=== PATIENT | male | born 1950 | race African-American/Black ===

== ENCOUNTER 2020-12-27 19:23 | Observation (INO) ==
[2020-12-27 21:52] LABS: Basophils # 0.1 10*3/uL (0.0-0.2); Basophils % 0.6 % (0.0-0.8); Eosinophils # 0.4 10*3/uL (0.0-0.87); Eosinophils % 3.3 % (0.00-10.9); Hematocrit 46.9 VOL% (42.0-52.0); Hemoglobin 14.9 GM/DL (14.0-18.0); Immature Granulocytes % 0.3 %; Immature Granulocytes Absolute 0.03 #; Lymphocytes # 4.2 10*3/uL (1.4-4.0); Lymphocytes % 38.5 % (21.2-54.2); Mean Corpuscular HGB Conc 31.8 GM/DL (32-36); Monocytes % 7.5 % (1.7-12.7); Neutrophils % 49.8 % (38.7-73.9); Platelet Count 308 T/CUMM (130-400); Red Blood Count 5.39 MC/CUMM (3.8-5.5); Red Cell Distribution Width 12.8 % (9.3-17.3); White Blood Count 10.8 T/CUMM (4-12)
[2020-12-27 22:06] LABS: Alanine Aminotransferase 27 U/L (16-61); Albumin 3.7 G/DL (3.4-5.0); Alkaline Phosphatase 87 U/L (45-117); Aspartate Amino Transferase 19 U/L (0-37); Bilirubin,Total < 0.39 MG/DL (0.2-1.0); Blood Urea Nitrogen 8 MG/DL (7-18); Calcium 9.5 MG/DL (8.5-10.1); Carbon Dioxide 23 MMOL/L (21-32); Estimated Glom Filtration Rate 74 ML/MIN; Glucose 105 MG/DL (74-106); Osmolality,Calculated 278.3 MOS/KG (273-304); Potassium 3.9 MMOL/L (3.5-5.1); Sodium 141 MMOL/L (136-145); Total Protein 7.9 G/DL (6.4-8.2)
[2020-12-27 22:10] LABS: Eosinophils 6 % (0-10); Lymphocytes 34 % (20-55); Segmented Neutrophils 50 % (50-85); Total Cells Counted 100
[2020-12-27 22:11] LABS: Atypical Lymphocytes Few; Burr Cells Few; Elliptocytes Few; Platelet Estimate Adequate
[2020-12-28] MEDS ORDERED: diphenhydrAMINE CAP 25 MG CAPSULE PO PRN (00:22)
[2020-12-28] MEDS ORDERED: hydrALAZINE 20 MG/1 ML VIAL IV PRN (00:22)
[2020-12-28] MEDS ORDERED: NICOTINE 21 MG/24 HR PATCH TRANSDERM PRN (00:22)
[2020-12-28] MEDS ORDERED: MORPHINE 4 MG/1 ML VIAL IV PRN (00:22)
[2020-12-28] MEDS ORDERED: ACETAMINOPHEN 325 MG TABLET PO PRN (00:22)
[2020-12-28] MEDS ORDERED: guaiFENesin/DM ER 600-30 MG TABLET PO PRN (00:22)
[2020-12-28] MEDS ORDERED: GLUCAGON 1 MG VIAL IM PRN (00:22)
[2020-12-28] MEDS ORDERED: ONDANSETRON 4 MG/2 ML VIAL IV PRN (00:22)
[2020-12-28] MEDS ORDERED: DEXTROSE 50% 25 GM/50 ML VIAL IV PRN ×2 (00:22→01:23)
[2020-12-28] MEDS: ALBUTEROL/IPRATROPIUM 3 ML NEB RESP TX SCH ×3 (00:52→13:10)
[2020-12-28] MEDS ORDERED: ALBUTEROL/IPRATROPIUM 3 ML NEB RESP TX PRN (03:31)
[2020-12-28] MEDS ORDERED: methylPREDNISolone SOD SUC 40 MG/1 ML VIAL IV SCH (04:00)
[2020-12-28] MEDS ORDERED: ENOXAPARIN 40 MG/0.4 ML SYRINGE SUBCUT SCH ×2 (06:00→09:00)
[2020-12-28] MEDS ORDERED: ASPIRIN 325 MG TABLET PO SCH (09:00)
[2020-12-28] MEDS ORDERED: BUDESONIDE/FORMOTEROL 160-4.5 INHALER 6 GM INH SCH (09:00)
[2020-12-28 12:06] VITALS: BP 140/68
== END 2020-12-28 14:22 | disposition home or self-care (01) ==
LOC: N.ED 19:23 → N.4E 19:23
PROVIDERS: ADMIT Internal Medicine; ATTEND Internal Medicine

== ENCOUNTER 2022-04-26 23:42 | Observation (INO) ==
[2022-04-27] MEDS ORDERED: amLODIPine 5 MG TABLET PO STA (00:04)
[2022-04-27] MEDS ORDERED: methylPREDNISolone SOD SUC 125 MG/2 ML VIAL IV STA (00:04)
[2022-04-27] MEDS ORDERED: ASPIRIN 325 MG TABLET PO STA (00:04)
[2022-04-27] MEDS ORDERED: MORPHINE 2 MG/1 ML SYRINGE IV STA (00:04)
[2022-04-27] MEDS ORDERED: ALBUTEROL/IPRATROPIUM 3 ML NEB RESP TX STA (00:04)
[2022-04-27] MEDS ORDERED: ONDANSETRON 4 MG/2 ML VIAL IV STA (00:04)
[2022-04-27 00:18] LABS: Basophils # 0.1 10*3/uL (0.0-0.2); Basophils % 0.6 % (0.0-0.8); Eosinophils # 0.6 10*3/uL (0.0-0.87); Eosinophils % 6.6 % (0.00-10.9); Hematocrit 45.1 VOL% (42.0-52.0); Hemoglobin 14.2 GM/DL (14.0-18.0); Immature Granulocytes % 0.3 %; Immature Granulocytes Absolute 0.03 #; Lymphocytes # 3.3 10*3/uL (1.4-4.0); Lymphocytes % 36.3 % (21.2-54.2); Mean Corpuscular HGB Conc 31.5 GM/DL (32-36); Mean Corpuscular Volume 84.3 FL (87-102); Mean Platelet Volume 9.7 FL (9.6-12.0); Monocytes # 0.6 10*3/uL (0.11-0.8); Monocytes % 6.7 % (1.7-12.7); Neutrophils % 49.5 % (38.7-73.9); Platelet Count 194 T/CUMM (130-400); Red Blood Count 5.35 MC/CUMM (3.8-5.5); Red Cell Distribution Width 14.1 % (9.3-17.3); White Blood Count 9.1 T/CUMM (4-12)
[2022-04-27 00:30] LABS: Albumin 3.5 G/DL (3.4-5.0); Bilirubin,Total 0.4 MG/DL (0.20-1.00); Calcium 9.1 MG/DL (8.5-10.1); Osmolality,Calculated 282.1 MOS/KG (273-304); Potassium 4.3 MMOL/L (3.5-5.1); Total Protein 7.2 G/DL (6.4-8.2)
[2022-04-27] MEDS ORDERED: ALBUTEROL NEB SOLN 5 MG/ML 20 ML/BOTTLE CONT NEB SCH (00:30)
[2022-04-27 00:52] LABS: INR 0.9; PT Patient Result 10.3 SECS (10.1-12.1); Partial Thromboplastin Time 25.9 SECS (23.7-32.9)
[2022-04-27] MEDS ORDERED: ACETAMINOPHEN 325 MG TABLET PO PRN (01:51)
[2022-04-27] MEDS ORDERED: GLUCAGON 1 MG VIAL IM PRN (01:51)
[2022-04-27] MEDS ORDERED: MORPHINE 2 MG/1 ML SYRINGE IV PRN (01:51)
[2022-04-27] MEDS ORDERED: DEXTROSE 10% 250 ML BAG IV PRN (01:51)
[2022-04-27] MEDS ORDERED: hydrALAZINE 20 MG/1 ML VIAL IV PRN (01:51)
[2022-04-27] MEDS ORDERED: ONDANSETRON 4 MG/2 ML VIAL IV PRN (01:51)
[2022-04-27] MEDS ORDERED: cefTRIAXone 500 MG VIAL ONE (02:41)
[2022-04-27] MEDS: cefTRIAXone 1,000 MG in SODIUM CHLORIDE 0.9% 100 ML IV SCH (02:48)
[2022-04-27] MEDS: AZITHROMYCIN INJ 500 MG in SODIUM CHLORIDE 0.9% 250 ML IV SCH (03:24)
[2022-04-27] MEDS: ALBUTEROL/IPRATROPIUM 3 ML NEB RESP TX SCH ×3 (07:02→19:50)
[2022-04-27] MEDS: BUDESONIDE/FORMOTEROL 160-4.5 INHALER 6 GM INH SCH ×2 (09:38→21:02)
[2022-04-27] MEDS: FUROSEMIDE 20 MG TABLET PO SCH (09:39)
[2022-04-27] MEDS: THEOPHYLLINE ER (24 HR) 400 MG CAPSULE PO SCH (09:39)
[2022-04-27] MEDS: methylPREDNISolone SOD SUC 125 MG/2 ML VIAL IV SCH ×2 (09:40→17:39)
[2022-04-27] MEDS: PANTOPRAZOLE 40 MG TABLET PO SCH (09:40)
[2022-04-27] MEDS: INSULIN LISPRO 100 UNIT/ML SUBCUT SCH ×4 (09:52→21:01)
[2022-04-27] MEDS: guaiFENesin 200 MG/10 ML UDCUP PO PRN ×2 (13:14→17:39)
[2022-04-27] MEDS: SIMVASTATIN 40 MG TABLET PO SCH (20:59)
[2022-04-27] MEDS: ENOXAPARIN 40 MG/0.4 ML SYRINGE SUBCUT SCH (21:00)
[2022-04-28] MEDS: ALBUTEROL/IPRATROPIUM 3 ML NEB RESP TX SCH ×4 (00:15→19:45)
[2022-04-28] MEDS: methylPREDNISolone SOD SUC 125 MG/2 ML VIAL IV SCH ×3 (01:08→18:17)
[2022-04-28] MEDS: cefTRIAXone 1,000 MG in SODIUM CHLORIDE 0.9% 100 ML IV SCH (02:36)
[2022-04-28] MEDS: AZITHROMYCIN INJ 500 MG in SODIUM CHLORIDE 0.9% 250 ML IV SCH (03:07)
[2022-04-28 05:08] LABS: Hematocrit 39.6 VOL% (42.0-52.0); Hemoglobin 12.9 GM/DL (14.0-18.0); Immature Granulocytes % 0.5 %; Immature Granulocytes Absolute 0.05 #; Lymphocytes # 1.1 10*3/uL (1.4-4.0); Lymphocytes % 11.7 % (21.2-54.2); Mean Corpuscular HGB Conc 32.6 GM/DL (32-36); Mean Corpuscular Volume 82.2 FL (87-102); Mean Platelet Volume 9.6 FL (9.6-12.0); Monocytes # 0.2 10*3/uL (0.11-0.8); Monocytes % 1.9 % (1.7-12.7); Neutrophils % 85.9 % (38.7-73.9); Platelet Count 194 T/CUMM (130-400); Red Blood Count 4.82 MC/CUMM (3.8-5.5); Red Cell Distribution Width 13.9 % (9.3-17.3); White Blood Count 9.2 T/CUMM (4-12)
[2022-04-28 05:25] LABS: Calcium 8.9 MG/DL (8.5-10.1); Osmolality,Calculated 282.4 MOS/KG (273-304)
[2022-04-28] MEDS: INSULIN LISPRO 100 UNIT/ML SUBCUT SCH ×4 (09:56→21:32)
[2022-04-28] MEDS: FUROSEMIDE 20 MG TABLET PO SCH (09:57)
[2022-04-28] MEDS: THEOPHYLLINE ER (24 HR) 400 MG CAPSULE PO SCH (09:57)
[2022-04-28] MEDS: PANTOPRAZOLE 40 MG TABLET PO SCH (09:57)
[2022-04-28] MEDS: BUDESONIDE/FORMOTEROL 160-4.5 INHALER 6 GM INH SCH ×2 (10:00→21:35)
[2022-04-28] MEDS: guaiFENesin 200 MG/10 ML UDCUP PO PRN ×2 (10:00→18:17)
[2022-04-28] MEDS ORDERED: ALBUTEROL 2.5 MG/3 ML NEB RESP TX PRN (10:47)
[2022-04-28] MEDS: ENOXAPARIN 40 MG/0.4 ML SYRINGE SUBCUT SCH (21:31)
[2022-04-28] MEDS: guaiFENesin/DM ER 600-30 MG TABLET PO SCH (21:32)
[2022-04-28] MEDS: SIMVASTATIN 40 MG TABLET PO SCH (21:32)
[2022-04-29] MEDS: ALBUTEROL/IPRATROPIUM 3 ML NEB RESP TX SCH ×2 (00:04→07:35)
[2022-04-29] MEDS: methylPREDNISolone SOD SUC 125 MG/2 ML VIAL IV SCH ×2 (01:50→09:17)
[2022-04-29] MEDS: cefTRIAXone 1,000 MG in SODIUM CHLORIDE 0.9% 100 ML IV SCH (03:05)
[2022-04-29] MEDS: AZITHROMYCIN INJ 500 MG in SODIUM CHLORIDE 0.9% 250 ML IV SCH (03:40)
[2022-04-29 05:34] LABS: Hematocrit 38.4 VOL% (42.0-52.0); Hemoglobin 12.4 GM/DL (14.0-18.0); Immature Granulocytes % 0.7 %; Immature Granulocytes Absolute 0.07 #; Lymphocytes # 0.9 10*3/uL (1.4-4.0); Lymphocytes % 9.5 % (21.2-54.2); Mean Corpuscular HGB Conc 32.3 GM/DL (32-36); Mean Corpuscular Volume 82.4 FL (87-102); Mean Platelet Volume 10.1 FL (9.6-12.0); Monocytes # 0.2 10*3/uL (0.11-0.8); Monocytes % 2.3 % (1.7-12.7); Neutrophils % 87.5 % (38.7-73.9); Platelet Count 209 T/CUMM (130-400); Red Blood Count 4.66 MC/CUMM (3.8-5.5); Red Cell Distribution Width 13.8 % (9.3-17.3); White Blood Count 9.7 T/CUMM (4-12)
[2022-04-29 05:53] LABS: Calcium 8.7 MG/DL (8.5-10.1); Osmolality,Calculated 285.3 MOS/KG (273-304); Potassium 3.6 MMOL/L (3.5-5.1)
[2022-04-29] MEDS: INSULIN LISPRO 100 UNIT/ML SUBCUT SCH ×2 (08:34→12:55)
[2022-04-29] MEDS: FUROSEMIDE 20 MG TABLET PO SCH (09:18)
[2022-04-29] MEDS: PANTOPRAZOLE 40 MG TABLET PO SCH (09:18)
[2022-04-29] MEDS: guaiFENesin/DM ER 600-30 MG TABLET PO SCH (09:18)
[2022-04-29] MEDS: THEOPHYLLINE ER (24 HR) 400 MG CAPSULE PO SCH (09:18)
[2022-04-29] MEDS: BUDESONIDE/FORMOTEROL 160-4.5 INHALER 6 GM INH SCH (09:19)
[2022-04-29 13:12] VITALS: BP 132/71
== END 2022-04-29 13:08 | disposition home or self-care (01) ==
LOC: N.ED 23:42 → N.TELES 23:42 → SUATTDRO 04-27 01:51 → N.TELES 04-27 04:47
PROVIDERS: ADMIT Internal Medicine; ATTEND Internal Medicine Geriatric Medicine

== ENCOUNTER 2022-09-15 07:30 | Observation (INO) ==
[2022-09-15] MEDS ORDERED: methylPREDNISolone SOD SUC 125 MG/2 ML VIAL IV STA (07:57)
[2022-09-15] MEDS ORDERED: ALBUTEROL NEB SOLN 5 MG/ML 20 ML/BOTTLE CONT NEB SCH (08:00)
[2022-09-15 08:09] LABS: Basophils # 0.1 10*3/uL (0.0-0.2); Basophils % 1.3 % (0.0-0.8); Eosinophils # 0.5 10*3/uL (0.0-0.87); Eosinophils % 7.5 % (0.00-10.9); Hematocrit 43.8 VOL% (42.0-52.0); Hemoglobin 14.1 GM/DL (14.0-18.0); Immature Granulocytes % 0.3 %; Immature Granulocytes Absolute 0.02 #; Lymphocytes # 2.3 10*3/uL (1.4-4.0); Lymphocytes % 32.3 % (21.2-54.2); Mean Corpuscular HGB Conc 32.2 GM/DL (32-36); Mean Corpuscular Volume 82.6 FL (87-102); Mean Platelet Volume 9.7 FL (9.6-12.0); Monocytes # 0.5 10*3/uL (0.11-0.8); Monocytes % 7.2 % (1.7-12.7); Neutrophils % 51.4 % (38.7-73.9); Platelet Count 290 T/CUMM (130-400); Red Cell Distribution Width 14.3 % (9.3-17.3); White Blood Count 7.18 T/CUMM (4-12)
[2022-09-15] MEDS ORDERED: ALBUTEROL 2.5 MG/3 ML NEB RESP TX ONE (08:14)
[2022-09-15 08:17] LABS: PT Patient Result 10.7 SECS (10.1-12.1); Partial Thromboplastin Time 26.4 SECS (23.7-32.9)
[2022-09-15 08:22] LABS: Alanine Aminotransferase 16 U/L (16-61); Albumin 3.5 G/DL (3.4-5.0); Alkaline Phosphatase 83 U/L (45-117); Aspartate Amino Transferase 18 U/L (0-37); Bilirubin,Total < 0.39 MG/DL (0.20-1.00); Blood Urea Nitrogen 11 MG/DL (7-18); Calcium 9.4 MG/DL (8.5-10.1); Carbon Dioxide 24 MMOL/L (21-32); Chloride 110 MMOL/L (98-107); Glucose 120 MG/DL (74-106); Potassium 3.8 MMOL/L (3.5-5.1); Sodium 143 MMOL/L (136-145); Total Protein 6.9 G/DL (6.4-8.2)
[2022-09-15 08:29] LABS: Bacteria,Urine Occasional /HPF (Few); Mucus,Urine Occasional /LPF (Occasional); RBC,Urine 1 /HPF (0-4)
[2022-09-15 08:30] LABS: Glucose,Urine (UA) Negative (Negative); Ketones,Urine Negative (Negative); Protein,Urine Negative (Negative); Urine Appearance Clear (Clear); Urine Color Yellow (Yellow); Urine Specific Gravity > 1.030 (1.001-1.035); Urine pH 5.5 (4.5-8.0)
[2022-09-15 08:31] LABS: Bilirubin,Urine Negative (Negative); Blood, Urine Negative (Negative); Nitrite,Urine Negative (Negative); Urine Urobilinogen 0.2 eU/dL (<2.0)
[2022-09-15 08:36] LABS: Barbiturates Screen,Urine Negative (Negative); Benzodiazepines Screen,Urine Negative (Negative); Cannabinoid Screen,Urine Negative (Negative); Opiate Screen,Urine Negative (Negative); Phencyclidine Screen,Urine Negative (Negative)
[2022-09-15] MEDS ORDERED: ONDANSETRON 4 MG/2 ML VIAL IV PRN (10:20)
[2022-09-15] MEDS ORDERED: DOCUSATE SODIUM 100 MG CAPSULE PO PRN (10:20)
[2022-09-15] MEDS ORDERED: ACETAMINOPHEN 325 MG TABLET PO PRN (10:20)
[2022-09-15] MEDS ORDERED: ALBUTEROL 1.25 MG/3 ML NEB RESP TX PRN (10:20)
[2022-09-15] MEDS ORDERED: GLUCAGON 1 MG VIAL IM PRN (10:20)
[2022-09-15] MEDS ORDERED: DEXTROSE 10% 250 ML BAG IV PRN (10:20)
[2022-09-15] MEDS: ENOXAPARIN 40 MG/0.4 ML SYRINGE SUBCUT SCH (10:40)
[2022-09-15] MEDS: methylPREDNISolone SOD SUC 40 MG/1 ML VIAL IV SCH ×2 (10:40→17:39)
[2022-09-15] MEDS: INSULIN LISPRO 100 UNIT/ML SUBCUT SCH ×3 (11:37→20:49)
[2022-09-15] MEDS: ALBUTEROL/IPRATROPIUM 3 ML NEB RESP TX SCH ×2 (13:10→19:28)
[2022-09-16] MEDS: ALBUTEROL/IPRATROPIUM 3 ML NEB RESP TX SCH ×4 (00:55→19:20)
[2022-09-16] MEDS: methylPREDNISolone SOD SUC 40 MG/1 ML VIAL IV SCH ×3 (02:29→17:53)
[2022-09-16 05:50] LABS: Hematocrit 40.7 VOL% (42.0-52.0); Hemoglobin 13.6 GM/DL (14.0-18.0); Immature Granulocytes % 0.4 %; Immature Granulocytes Absolute 0.03 #; Lymphocytes # 0.9 10*3/uL (1.4-4.0); Mean Corpuscular HGB Conc 33.4 GM/DL (32-36); Mean Corpuscular Volume 80.9 FL (87-102); Monocytes # 0.1 10*3/uL (0.11-0.8); Monocytes % 1.7 % (1.7-12.7); Neutrophils % 84.9 % (38.7-73.9); Platelet Count 266 T/CUMM (130-400); Red Blood Count 5.03 MC/CUMM (3.8-5.5); Red Cell Distribution Width 13.9 % (9.3-17.3); White Blood Count 7.06 T/CUMM (4-12)
[2022-09-16] MEDS: INSULIN LISPRO 100 UNIT/ML SUBCUT SCH ×4 (09:44→21:08)
[2022-09-16] MEDS: ENOXAPARIN 40 MG/0.4 ML SYRINGE SUBCUT SCH (09:47)
[2022-09-16] MEDS: PANTOPRAZOLE 40 MG TABLET PO SCH (09:53)
[2022-09-16] MEDS ORDERED: SIMVASTATIN 40 MG TABLET PO SCH (21:00)
[2022-09-17] MEDS: ALBUTEROL/IPRATROPIUM 3 ML NEB RESP TX SCH ×2 (01:35→07:05)
[2022-09-17] MEDS: methylPREDNISolone SOD SUC 40 MG/1 ML VIAL IV SCH ×2 (02:08→10:32)
[2022-09-17 08:12] VITALS: BP 147/77
[2022-09-17] MEDS ORDERED: BUDESONIDE/FORMOTEROL 160-4.5 INHALER 6 GM INH SCH (09:00)
[2022-09-17] MEDS ORDERED: PANTOPRAZOLE 40 MG TABLET PO SCH (09:00)
[2022-09-17] MEDS ORDERED: LOSARTAN 50 MG TABLET PO SCH (09:00)
[2022-09-17] MEDS ORDERED: THEOPHYLLINE ER (24 HR) 200 MG CAPSULE PO SCH (09:00)
[2022-09-17] MEDS: INSULIN LISPRO 100 UNIT/ML SUBCUT SCH (09:16)
[2022-09-17] MEDS: PANTOPRAZOLE 40 MG TABLET PO SCH (09:16)
[2022-09-17] MEDS: ENOXAPARIN 40 MG/0.4 ML SYRINGE SUBCUT SCH (10:32)
[2022-09-18] MEDS ORDERED: ERGOCALCIFEROL 50,000 UNIT CAPSULE PO SCH (10:25)
== END 2022-09-17 10:58 | disposition home or self-care (01) ==
LOC: N.ED 07:30 → N.2E 07:30 → SUATTDRO 10:28 → N.2E 11:11
PROVIDERS: ADMIT Internal Medicine; ATTEND Internal Medicine